=== PATIENT | female | born 1985 | race Caucasian/White ===

== ENCOUNTER 2021-02-19 17:23 | Emergency (ER) | payer OTHER, SELFPAY ==
[2021-02-19 17:33] VITALS: BP 132/88; PULSE 68; RESP 16; TEMP 37.2; O2SAT 100
--- NOTE | 2021-02-19 18:25 | ED.EAR ---
HPI - Ear Problem General Chief complaint: Ear Stated complaint: Jaw and Throat Pain Source: patient and RN notes reviewed Limitations: no limitations History of Present Illness HPI Narrative: The patient- a non-smoker/nondrinker- presents with a couple day worsening, of couple week history, of right jaw and ear discomfort. She complains of pain inferior/posterior to the TMJ that is worse with chewing or eating, better with palpation during eating. She attributes onset to bruxism or teeth clenching and possibly swimming, and symptoms not better with OTC preparations like peroxide, bite guard. No discharge, vertigo, tinnitus, decreased hearing, fever, sore throat, poor dentition-she has dentist appointment this week. Discussed possible causes [infectious, acquired, dental] and will treat broadly with antibiotics for occult dental abscess. Related Data Home Medications Medication Instructions Recorded Confirmed acyclovir 800 mg PO DAILY 02/19/21 02/19/21 levetiracetam 500 mg PO DAILY 02/19/21 02/19/21 metoclopramide HCl 10 mg PO DAILY 02/19/21 02/19/21 norethindrone acetate 5 mg PO DAILY 02/19/21 02/19/21 omeprazole 20 mg PO DAILY 02/19/21 02/19/21 Allergies Allergy/AdvReac Type Severity Reaction Status Date / Time glycerin Allergy Rash Verified 02/19/21 17:42 Beta-Blockers AdvReac Unknown Loss of Verified 02/19/21 17:42 (Beta-Adrenergic Bloc Consciousness gabapentin AdvReac Unknown Loss of Verified 02/19/21 17:42 Consciousness [id number] Antimigraine AdvReac Unknown Loss of Verified 02/19/21 17:42 Agents Consciousness RIZATRIPTAN BENZOATE AdvReac Unknown Loss of Uncoded 02/19/21 17:42 Consciousness Review of Systems Review of Systems: Narrative: General/Constitutional: No weight loss,fever Eyes: N0: Redness,discharge Ears/Nose/Throat: No: Epistaxis,ear discharge Respiratory: Denies: Hemoptysis Gastrointestinal: No Vomiting, Bleeding-rectal Skin: No Lumps, eruption Neurologic: No Focal Weakness,Sz Hematologic: Denies: Petechiae/Purpura Psychiatric: No: Suicida ideationl All Other Systems: Reviewed and Negative [facility] Family History Family History (Updated 10/06/14 @ 10:03 by DOCTOR UNKNOWN) Other Diabetes mellitus Family history of malignant neoplasm Hypertension Social History Social History Smoking status: Current every day smoker Alcohol intake: current Comments At time of signature, agree with nursing past medical, surgical, social and family history. There is no relevant family history pertinent to the presenting complaint Exam Narrative: Exam Narrative: General Appearance: Well appearing, Well nourished, Obese EYE: PERRLA, EOMI, Conjunctiva clear Ears: External ear normal, Auditory canal normal, scant wax, old scarred TMs [s/p PE tubes] Nose: Normal nose Mouth/Throat: Normal appearing without mild R jaw swelling, Normal lips, MM moist, Uvula midline, scattered dental caries Neck: Supple, No adenopathy Respiratory: Airway patent, No respiratory distress, Clear to auscultation Musculoskeletal: Full ROM, Non tender, Normal strength Skin: Warm, Dry, Normal color Neurological: A&O x3, Speech clear, CN II-XII intact Psychiatric: Normal mood, Normal affect Course Vital Signs Vital signs: Vital Signs Temperature 98.9 F 02/19/21 17:33 Pulse Rate 68 02/19/21 17:33 Respiratory Rate 16 02/19/21 17:33 Blood Pressure 132/88 02/19/21 17:33 Pulse Oximetry 100 02/19/21 17:33 Temperature 98.9 F 02/19/21 17:33 Pulse Rate 68 02/19/21 17:33 Respiratory Rate 16 02/19/21 17:33 Blood Pressure 132/88 02/19/21 17:33 Pulse Oximetry 100 02/19/21 17:33 Medical Decision Making Vital Signs Vital Signs: Vital Signs Temperature 98.9 F 02/19/21 17:33 Pulse Rate 68 02/19/21 17:33 Respiratory Rate 16 02/19/21 17:33 Blood Pressure 132/88 02/19/21 17:33 Pulse Oximetry 100 02/19/21 17:33 Temperature 98.9 F
== END 2021-02-19 18:33 | disposition home or self-care (01) ==
PROVIDERS: Emergency Provider Emergency Medicine; PCP Internal Medicine
DX: H92.02 Otalgia, left ear (principal); M26.621 Arthralgia of right temporomandibular joint; F17.200 Nicotine dependence, unspecified, uncomplicated
CPT/HCPCS: 99213; G0463

== ENCOUNTER 2021-06-20 07:15 | Outpatient (CLI) | payer OTHER, SELFPAY ==
--- NOTE | ~2021-06-20 | US_ITS ---
EXAMINATION: US right upper quadrant EXAM DATE: 06/20/2021 07:53 INDICATION: abd pain, nausea/vomiting PAIN, N/V. TECHNIQUE: Multiple grayscale and Doppler images of the abdomen right upper quadrant were obtained (b y a technologist who performed the scan) and subsequently reviewed. There is no prior study for pinky monique. FINDINGS: The pancreatic head and body are normal in appearance. The pancreatic tail is not visualized. The l iver has normal echogenicity and contour. There is a hyperechoic liver lesion at the dome measuring 9 mm, most likely a hemangioma correlating with prior abdomen pelvis CT 01/02/2019, unchanged in size. There is no evidence of intrahepatic biliary duct dilation. Portal venous flow was seen in the hep atopedal, normal direction and has normal Doppler waveform. No right-sided hydronephrosis. Common bile duct measures 3 mm, which is normal. The gallbladder wall is normal in thickness, with ex pected amount of distention. No sonographic evidence of pericholecystic fluid. There is no cholelit hiases. Technologist performing exam reports patient did not demonstrate sonographic Dean's sign. Please note that this sign is less reliable in patients who have received pain medication. IMPRESSION: Small liver hemangioma. Reviewed, dictated and finalized at location A. IMPRESSION: Small liver hemangioma.
== END 2021-06-20 07:16 | disposition home or self-care (01) ==
PROVIDERS: PCP Internal Medicine; Visit Provider Internal Medicine Gastroenterology
DX: R10.84 Generalized abdominal pain (principal); R11.2 Nausea with vomiting, unspecified
CPT/HCPCS: 76705

== ENCOUNTER 2022-05-21 07:59 | Outpatient (CLI) | payer OTHER, SELFPAY ==
--- NOTE | ~2022-05-21 | US_ITS ---
EXAMINATION: US right upper quadrant DATE: 05/21/2022 08:54 INDICATION: Hemangioma of other sites. TECHNIQUE: Multiple grayscale and Doppler ultrasound images of the abdomen were obtained. COMPARISON: Ultrasound abdomen 06/20/2021, CT abdomen and pelvis 01/02/2019 FINDINGS: The visualized portions of the head, body, and tail of the pancreas are normal. There is a 10 mm hyperechoic mass in right hepatic lobe. There is normal flow in main portal vein. The gallbladd er is normal in size. No gallstones or gallbladder wall thickening. There was no sonographic Dean s ign. The common duct is normal and measures 2 mm. IMPRESSION: 1. 10 mm hyperechoic mass in right hepatic lobe, stable from 06/20/2021, likely a hemangioma. Reviewed, dictated and finalized at location A.
== END 2022-05-21 08:00 | disposition home or self-care (01) ==
PROVIDERS: PCP Internal Medicine; Visit Provider Internal Medicine Gastroenterology
DX: D18.09 Hemangioma of other sites (principal)
CPT/HCPCS: 76705

== ENCOUNTER 2022-11-10 16:18 | Emergency (ER) | payer OTHER, SELFPAY ==
[2022-11-10 16:24] VITALS: BP 133/86; PULSE 107; RESP 18; O2SAT 100
[2022-11-10 16:31] VITALS: TEMP 35.7
[2022-11-10 16:41] LABS: Basophils Absolute Auto 0.1 K/mm3 (0.0-0.1); Basophils Percent Auto 0.3 % (0.2-1.2); Hematocrit 43.6 % (37.0-47.0); Hemoglobin 14.9 g/dL (12.0-15.0); Immature Granulocyte Absolute 0.14 K/mm3 (0.00-0.031); Immature Granulocyte Percent A 0.7 % (0-0.5); Lymphocytes Absolute Auto 0.94 K/mm3 (0.9-3.2); Lymphocytes Percent Auto 4.6 % (18.3-44.2); Mean Corpuscular HGB Conc 34.2 g/dl (32-36); Mean Corpuscular Hemoglobin 32.4 pg (26-34); Mean Corpuscular Volume 94.8 fl (80-100); Mean Platelet Volume 9.2 fl (7.4-10.4); Monocytes Absolute Auto 0.5 K/mm3 (0.1-0.6); Monocytes Percent Auto 2.2 % (2.6-8.5); Neutrophils Absolute Auto 18.9 K/mm3 (1.3-6.7); Neutrophils Percent Auto 92.2 % (45.5-73.1); Platelet Count Result 339 k/mm3 (150-375); Red Cell Distribution Width 11.8 % (11.5-14.5); White Blood Count 20.5 K/mm3 (4.5-10.0)
[2022-11-10 17:10] LABS: Alanine Aminotransferase 31 U/L (6-35); Albumin Level 5.2 g/dL (3.5-5.1); Alkaline Phosphatase 86 U/L (38-126); Anion Gap 12 mmol/L (8-16); Aspartate Amino Transferase 29 U/L (14-36); Bilirubin,Total 0.6 mg/dL (0.2-1.3); Blood Urea Nitrogen 13 mg/dL (7-17); Calcium 9.8 mg/dL (8.4-10.2); Carbon Dioxide 24 mmol/L (22-30); Chloride 105 mmol/L (98-107); Estimated CRCL calculation 62 ml/min; Estimated Glomerular Filt Rate > 60; Glucose 156 mg/dL (65-110); Lipase 81 U/L (23-300); Potassium 4.6 mmol/L (3.4-5.0); Sodium 141 mmol/L (137-145)
[2022-11-10 17:45] LABS: Bacteria Urine 2+ /hpf; Non Pathogenic Casts 0-2; Squamous Epithelial Cell Urine None seen /hpf (Few)
[2022-11-10 17:55] LABS: WBC Urine >75 /hpf
[2022-11-10 17:56] LABS: RBC Urine >75 /hpf (0-2)
[2022-11-10 18:05] LABS: Appearance Urine Cloudy (Clear); Bilirubin Urine 1+ (Negative); Blood Urine 3+ (Negative); Color Urine Amber (Yellow); Glucose Urine UA Negative (Negative); Ketones Urine 4+ mg/dL (Negative); Leukocyte Esterase Ur Trace LEU/UL (Negative); Nitrate Urine Negative (Negative); Protein Urine 3+ mg/dL (Negative); Specific Grav Ur >= 1.030 (1.001-1.035); Urobilinogen Urine 0.2 mg/dL (<2.0)
[2022-11-10 18:07] LABS: Add Urine Microscopic? YES
[2022-11-10 18:19] VITALS: BP 119/69; PULSE 84; RESP 16; TEMP 36.4; O2SAT 100
--- NOTE | 2022-11-10 18:59 | PC.NURSE ---
pt left d/t wait time
== END 2022-11-10 19:15 | disposition left against medical advice (07) ==
LOC: ANHED 19:08
PROVIDERS: Emergency Provider Emergency Medicine; PCP Internal Medicine
DX: R11.2 Nausea with vomiting, unspecified (principal)
CPT/HCPCS: 36415; 80053; 81001; 81025; 83690; 85025; 87086; 87088; 99199

== ENCOUNTER 2022-12-12 08:50 | Outpatient (CLI) | payer OTHER, SELFPAY ==
--- NOTE | ~2022-12-12 | US_ITS ---
Limited Abdominal Sonogram: Real-time sonographic imaging of the right upper quadrant was performed. Clinical History: Hemangioma COMPARISON: 05/21/2022 and 06/20/2021 Findings: The liver appears normal with no evidence of bile duct dilatation. There is a 1.3 cm hyper echoic mass in the right hepatic lobe. Main portal vein demonstrates normal direction of flow. The ga llbladder is well distended, and appears normal with no evidence of gallstone or wall thickening. The common bile duct measures 3 mm. The visualized pancreas, aorta, and IVC are unremarkable. Impression: 1.3 cm hyperechoic hepatic lesion, most likely hemangioma. This is similar to prior exams. Reviewed, dictated and finalized at location . Impression: 1.3 cm hyperechoic hepatic lesion, most likely hemangioma. This is similar to p rior exams.
== END 2022-12-12 08:51 | disposition home or self-care (01) ==
PROVIDERS: PCP Internal Medicine; Visit Provider Internal Medicine Gastroenterology
DX: D18.09 Hemangioma of other sites (principal)
CPT/HCPCS: 76705

== ENCOUNTER 2023-07-08 16:36 | Emergency (ER) | payer OTHER, SELFPAY ==
[2023-07-08 16:54] VITALS: BP 131/89; PULSE 89; RESP 16; TEMP 37.4; O2SAT 99
--- NOTE | 2023-07-08 17:26 | ED.URI ---
HPI - URI/Sore Throat General Chief Complaint: Upper Respiratory Infection Stated Complaint: Cough/Sinus Time Seen by Provider: 07/08/23 17:26 Source: patient, RN notes reviewed and old records reviewed Mode of arrival: ambulatory Limitations: no limitations History of Present Illness HPI Narrative: 38-year-old female presents to the [facility] with complaints of cough and sinus congestion that started about 30 days ago. Yesterday started with some chest wall pain only when coughing. Has tried multiple [id number] products with no relief. Has a history of migraine Related Data Home Medications Medication Instructions Recorded Confirmed acyclovir 800 mg tablet 800 mg PO DAILY 02/19/21 07/08/23 metoclopramide HCl 10 mg tablet 10 mg PO DAILY 02/19/21 07/08/23 loratadine 10 mg tablet (Claritin) 10 mg PO DAILY 07/08/23 07/08/23 pantoprazole 40 mg tablet,delayed 40 mg PO DIRECTED 07/08/23 07/08/23 release Allergies Allergy/AdvReac Type Severity Reaction Status Date / Time glycerin Allergy Rash Verified 02/19/21 17:42 Beta-Blockers AdvReac Unknown Loss of Verified 02/19/21 17:42 (Beta-Adrenergic Bloc Consciousness gabapentin AdvReac Unknown Loss of Verified 02/19/21 17:42 Consciousness [id number] Antimigraine AdvReac Unknown Loss of Verified 02/19/21 17:42 Agents Consciousness RIZATRIPTAN BENZOATE AdvReac Unknown Loss of Uncoded 02/19/21 17:42 Consciousness Review of Systems Review of Systems: All systems reviewed & are unremarkable except as noted in HPI and below Constitutional: Constitutional: Reports no additional constitutional complaints Eyes: Eyes: Reports no additional eye complaints ENT: Reports as per HPI Cardiovascular: Cardiovascular: Reports no additional cardiovascular complaints, Denies chest pain and Denies dyspnea Respiratory: Respiratory: Reports as per HPI, Denies chest congestion, Reports cough and Denies dyspnea Gastrointestinal: Gastrointestinal: Reports no additional gastrointestinal complaints, Denies abdominal pain, Denies nausea and Denies vomiting Musculoskeletal: Musculoskeletal: Reports no additional musculoskeletal complaints Integumentary/Breasts: Skin/Breast: Reports system reviewed and no additional complaints, except as docu Neurologic: Reports system reviewed and no additional complaints, except as documented Psychiatric: Psychiatric: Reports no additional psychiatric complaints Allergic/Immunologic: Allergic/Immunologic: Reports no additional allergic/immunologic complaints PMFSH Family History Family History Other Diabetes mellitus Family history of malignant neoplasm Hypertension Social History Social History Smoking status: Current every day smoker Alcohol intake: current Comments At the time of my signature, I reviewed and agree with the nursing past medical, surgical, social, and family history. There is no relevant family history pertinent to the patient complaint. Exam Const: General: cooperative, healthy appearing, comfortable, no acute distress, well developed, alert and well nourished Nutritional Appearance: well nourished Orientation/consciousness: patient oriented x3 Limitations: no limitations HENMT: Head: normal to inspection Ears: hearing grossly normal bilaterally, external ears normal, TM's normal bilaterally and EAC's normal Face/Nose/Sinus: Normal external nose present, Normal nares present, Normal nasal mucous membranes and turbinates present, normal facial exam and face symmetric Face and sinus: normal facial exam and face symmetric Mouth: Yes Normal oral and palatal mucosa present, Yes lip normal and Yes moist mucous membranes Throat: posterior oropharynx normal, uvula midline and postnasal drainage Eyes: General: appearance normal, both eyes and all related structures Alignment and Position: a
== END 2023-07-08 17:40 | disposition home or self-care (01) ==
PROVIDERS: Emergency Provider Nurse Practitioner; PCP Internal Medicine
DX: J40 Bronchitis, not specified as acute or chronic (principal); F17.200 Nicotine dependence, unspecified, uncomplicated
CPT/HCPCS: 99213; G0463

== ENCOUNTER 2023-10-29 07:24 | Outpatient (CLI) | payer OTHER, SELFPAY ==
--- NOTE | ~2023-10-29 | US_ITS ---
Limited Abdominal Sonogram: Real-time sonographic imaging of the right upper quadrant was performed. Clinical History: Hemangioma COMPARISON: 12/12/2022 Findings: The liver appears normal with no evidence of bile duct dilatation. Stable hyperechoic hepa tic mass measures 9 mm, suggestive of small hemangioma. Main portal vein demonstrates normal directio n of flow. The gallbladder is well distended, and appears normal with no evidence of gallstone or wal l thickening. The common bile duct measures 3 mm. The visualized pancreas, aorta, and IVC are unrema rkable. Impression: 9 mm hyperechoic hepatic lesion is most compatible with small hemangioma, essentially unchanged from prior exam given differences in imaging technique. Reviewed, dictated and finalized at [facility]. MAKER Impression: 9 mm hyperechoic hepatic lesion is most compatible with small hemangioma, essen emmally unchanged from prior exam given differences in imaging technique.
== END 2023-10-29 07:25 | disposition home or self-care (01) ==
PROVIDERS: PCP Internal Medicine; Visit Provider Internal Medicine Gastroenterology
DX: D18.09 Hemangioma of other sites (principal)
CPT/HCPCS: 76705

== ENCOUNTER 2025-05-22 14:36 | Emergency (ER) | payer OTHER, SELFPAY ==
[2025-05-22] VITALS (18 sets, daily range): BP systolic 119–138; BP diastolic 61–99; PULSE 59–103; RESP 15–42; TEMP 36.4; O2SAT 96–100
[2025-05-22 15:10] LABS: Hematocrit 44.5 % (37.0-47.0); Hemoglobin 15.2 g/dL (12.0-15.0); Immature Granulocyte Percent A 1.3 % (0-0.5); Lymphocytes Absolute Auto 3.28 K/mm3 (0.9-3.2); Mean Corpuscular HGB Conc 34.2 g/dl (32-36); Mean Corpuscular Hemoglobin 33.0 pg (26-34); Mean Corpuscular Volume 96.5 fl (80-100); Nucleated Red Blood Cells Absolute Auto 0.000 K/mm3 (0.0-0.012); Nucleated Red Blood Cells Perc 0.0 % (0.0-0.2); Platelet Count Result 386 k/mm3 (150-375); Red Blood Count 4.61 M/mm3 (4.2-5.4); White Blood Count 23.1 K/mm3 (4.5-10.0)
--- NOTE | 2025-05-22 15:10 | ED.NAVMDI ---
HPI - Nausea/Vomiting/Diarrhea General Chief complaint: Nausea/Vomiting/Diarrhea Stated complaint: N/V, black stool Time Seen by Provider: 05/22/25 14:50 History of Present Illness HPI Narrative: Patient is a 40-year-old female who presents to the ER with nausea vomiting and generalized abdominal pain that started this morning. She reports she has had these symptoms in the past but never this severe. Patient endorses daily marijuana use. She denies any recent fevers, urinary symptoms, back pain. Patient endorses a history of migraine headaches. Related Data Home Medications ?Medication ?Instructions ?Recorded ?Confirmed ?Last Taken ?Type acyclovir 800 mg tablet 800 mg PO DAILY 02/19/21 02/23/25 Unknown History Allergies Allergy/AdvReac Type Severity Reaction Status Date / Time glycerin Allergy Rash Verified 05/22/25 14:37 Beta-Blockers AdvReac Unknown Loss of Verified 05/22/25 14:37 (Beta-Adrenergic Bloc Consciousness gabapentin AdvReac Unknown Loss of Verified 05/22/25 14:37 Consciousness [id number] Antimigraine AdvReac Unknown Loss of Verified 05/22/25 14:37 Agents Consciousness RIZATRIPTAN BENZOATE AdvReac Unknown Loss of Uncoded 05/22/25 14:37 Consciousness Review of Systems Review of Systems: All systems reviewed & are unremarkable except as noted in HPI and below PMFSH Past Medical History Medical History Migraines Surgical History Surgical History History of tonsillectomy Family History Family History Other Diabetes mellitus Family history of malignant neoplasm Hypertension Social History Social History Smoking status: Current every day smoker Alcohol intake: current Exam Narrative: GENERAL: Ill appearing, well-nourished, non-toxic, in acute distress due to pain. HEAD: Normocephalic, atraumatic. NECK: Supple. No adenopathy, no masses. RESPIRATORY: Airway patent, respirations nonlabored. Clear to auscultation bilaterally, no rales, rhonchi, wheezing. CARDIOVASCULAR: Regular rate and rhythm without murmurs, rubs, or gallops. Peripheral pulses 2+ and equal bilaterally. ABDOMINAL: Soft, generalized tenderness, nondistended, no hepatosplenomegaly. Normoactive BS. MUSCULOSKELETAL: Moves all extremities. Strength/ROM intact without gross deformities. SKIN: Warm, dry, normal color. No rashes. NEURO: A&O X3. Speech clear. Cranial nerves II-XII intact. No ataxic movements. PSYCHIATRIC: Appropriate mood and affect. Normal interaction. Course Vital Signs Vital signs: Vital Signs Temperature 36.4 C 05/22/25 14:38 Pulse Rate 91 05/22/25 14:38 Respiratory Rate 20 05/22/25 14:38 Blood Pressure 125/74 05/22/25 14:38 Pulse Oximetry 99 05/22/25 14:38 Oxygen Delivery Room Air 05/22/25 14:38 Temperature 36.4 C 05/22/25 14:38 Pulse Rate 64 05/22/25 17:16 Respiratory Rate 15 05/22/25 17:16 Blood Pressure 119/90 05/22/25 17:16 Pulse Oximetry 99 05/22/25 15:46 Oxygen Delivery Room Air 05/22/25 14:38 MDM - Nausea/Vomiting/Diarrhea MDM Narrative Medical decision making narrative: Patient is a 40-year-old female who presents to the ER with nausea vomiting and generalized abdominal pain that started this morning. She reports she has had these symptoms in the past but never this severe. Patient endorses daily marijuana use. She denies any recent fevers, urinary symptoms, back pain. Patient endorses a history of migraine headaches. Labs Ordered: CBC, CMP, type and screen, PTT, INR, UA, UDS Imaging Ordered: None necessary Medications Ordered: 1 L normal saline IV bolus, Toradol 15 mg IV, Haldol 5 mg IM Results: Patient's CBC indicates a white blood cell count 23.1, hemoglobin of 15.2, platelet count of 386. Her coags were within normal limits. Patient's chemistry indicates a carbon dioxide of 13, anion gap of 23, glucose of 131, total protein 8.7, albumin of 5.4. Her urinalysis indicates mild dehydration. Patient UDS was positive for cannabinoids. Diagnosis: Cannabinoid hyperemesis, nausea and vomiting, dehydration Patient Education/Shared MDM: Results of lab work shared with patient. She endorses significant improvement of symptoms following medication administration. Extensive education regarding marijuana use was provided to patient and her significant other. Patient strongly advised to maintain hydration status upon discharge and follow-up with her PCP as needed. She will be discharged home with a prescription for Reglan and capsaicin motion. Strict return precautions provided. Patient verbalized understanding and is in agreement with plan. Vital signs stable at time of discharge. All questions answered. Differential Diagnosis Differential diagnosis: Likely food poisoning, gastroenteritis, drug-induced nausea and vomiting and dehydration Lab Data Attestation: I reviewed the patient's lab results. 05/22/25 15:04 05/22/25 15:04 Labs: Lab Results 05/22/25 05/22/25 Range/Units 15:04 15:14 WBC 23.1 H (4.5-10.0) K/mm3 RBC 4.61 (4.2-5.4) M/mm3 Hgb 15.2 H (12.0-15.0) g/dL Hct 44.5 (37.0-47.0) % MCV 96.5 (80-100) fl MCH 33.0 (26-34) pg MCHC 34.2 (32-36) g/dl RDW 12.6 (11.5-14.5) % Plt Count 386 H (150-375) k/mm3 MPV 8.6 (7.4-10.4) fl Immature Gran % (Auto) 1.3 H (0-0.5) % Neut % (Auto) 80.1 H (45.5-73.1) % Lymph % (Auto) 14.2 L (18.3-44.2) % [place] % (Auto) 3.8 (2.6-8.5) % Eos % (Auto) 0.0 (0-4.4) % Baso % (Auto) 0.6 (0.2-1.2) % Lymph # (Auto) 3.28 H (0.9-3.2) K/mm3 [place] # (Auto) 0.9 H (0.1-0.6) K/mm3 Eos # (Auto) 0.0 (0-0.3) K/mm3 Baso # (Auto) 0.1 (0.0-0.1) K/mm3 Abs Immat Gran (auto) 0.30 H (0.00-0.031) K/mm3 Absolute Neuts (auto) 18.5 H (1.3-6.7) K/mm3 Absolute Nucleated RBC 0.000 (0.0-0.012) K/mm3 Nucleated RBC % 0.0 (0.0-0.2) % PT 14.0 (11.1-14.7) Seconds INR 1.1 APTT 22.6 (22.3-36.8) Seconds Sodium 142 (137-145) mmol/L Potassium 3.8 (3.4-5.0) mmol/L Chloride 106 (98-107) mmol/L Carbon Dioxide 13 L (22-30) mmol/L Anion Gap 23 H (4-12) mmol/L BUN 16 (7-17) mg/dL Creatinine 0.86 (0.7-1.0) mg/dL Estim Creat Clear Calc 59 ml/min Estimated GFR > 60 (59 - ) Glucose 131 H (65-110) mg/dL Calcium 10.1 (8.4-10.2) mg/dL Total Bilirubin 0.4 (0.2-1.3) mg/dL AST 31 (14-36) U/L ALT 29 (6-35) U/L Alkaline Phosphatase 87 (38-126) U/L Total Protein 8.7 H (6.3-8.2) g/dL Albumin 5.4 H (3.5-5.1) g/dL Urine Color Yellow (Yellow) Urine Appearance Clear (Clear) Urine pH 5.5 (5.0-9.0) Ur Specific [place] >= 1.030 (1.001-1.035) Urine Protein 2+ H (Negative) mg/dL Urine Glucose (UA) Negative (Negative) mg/dL Urine Ketones 1+ H (Negative) mg/dL Ur Blood (Man) 1+ H (Negative) Urine Nitrate Negative (Negative) Urine Bilirubin Negative (Negative) Urine Urobilinogen 0.2 (<2.0) mg/dL Add Ur Microanalysis Reviewed Leukocyte Esterase Rfl Negative (Negative) MEHRAN/UL Urine RBC 3-5 H (0-2) /hpf Urine WBC 0-5 (0-3) /hpf Ur Squamous Epith Cells Occasional (Few) /hpf Urine Bacteria 1+ H /hpf Urine Casts 0-2 Urine Opiates Screen Negative (Negative) Urine Methadone Screen Negative (Negative) Ur Barbiturates Screen Negative (Negative) Ur Phencyclidine Scrn Negative (Negative) Ur Amphetamine Screen Negative (Negative) U Benzodiazepines Scrn Negative (Negative) Urine Cocaine Screen Negative (Negative) U Cannabinoids Screen Positive A (Negative) Blood Type A Positive Antibody Screen Negative Discharge Plan Discharge Clinical Impression: Drug-induced nausea and vomiting, Dehydration, Cannabinoid hyperemesis syndrome Patient Disposition: Home Condition: Improved Instructions: Antibiotic Form, Dehydration (ED), Acute Nausea and Vomiting (ED), Cannabis Use Disorder (ED) Additional Instructions: Please return to the ER with any worsening symptoms. Follow-up with primary care provider as needed. If your symptoms return please take a hot shower and apply capsaicin lotion afterwards. You may take Reglan as needed for nausea. Please use Tylenol and/or ibuprofen for pain control. Patient Language: Turkish Prescriptions: New metoclopramide HCl [Reglan] 10 mg tablet 10 mg PO Q6H PRN (Reason: nausea and vomiting) Qty: 30 0RF capsaicin 0.075 % cream 1 applic topical TID Qty: 60 0RF Rx Instructions: do not wash area for at least 30 min after application No Action acyclovir 800 mg tablet 800 mg PO DAILY famotidine 40 mg tablet 40 mg PO DAILY Qty: 90 3RF promethazine 12.5 mg tablet 12.5 mg PO TID PRN (Reason: nausea and vomiting) Qty: 60 0RF Follow-up/Referrals: Kal,Kendra Spain MD [Primary Care Provider, Unknown] Time of Disposition: 18:01
[2025-05-22 15:22] LABS: Alanine Aminotransferase 29 U/L (6-35); Albumin Level 5.4 g/dL (3.5-5.1); Alkaline Phosphatase 87 U/L (38-126); Anion Gap 23 mmol/L (4-12); Aspartate Amino Transferase 31 U/L (14-36); Bilirubin,Total 0.4 mg/dL (0.2-1.3); Blood Urea Nitrogen 16 mg/dL (7-17); Calcium 10.1 mg/dL (8.4-10.2); Carbon Dioxide 13 mmol/L (22-30); Chloride 106 mmol/L (98-107); Estimated CRCL calculation 59 ml/min; Estimated Glomerular Filt Rate > 60; Glucose 131 mg/dL (65-110); Potassium 3.8 mmol/L (3.4-5.0); Sodium 142 mmol/L (137-145); Total Protein 8.7 g/dL (6.3-8.2)
[2025-05-22] MEDS: SODIUM CHLORIDE 0.9% IV 1,000 ML 999 ML IV CONT (15:22)
[2025-05-22] MEDS: KETOROLAC 15 MG/ML VIAL (*BKC) IV PUSH (15:22)
[2025-05-22] MEDS: HALOPERIDOL LACTATE 5 MG/ML VIAL IM (15:22)
[2025-05-22 15:23] LABS: INR 1.1; Prothrombin Time 14.0 Seconds (11.1-14.7)
[2025-05-22 15:25] LABS: Partial Thromboplastin Time 22.6 Seconds (22.3-36.8)
[2025-05-22 15:38] LABS: Cannabinoid Screen Urine Positive (Negative)
[2025-05-22 15:50] LABS: Appearance Urine Clear (Clear); Glucose Urine UA Negative (Negative); Specific Grav Ur >= 1.030 (1.001-1.035)
[2025-05-22 15:51] LABS: Add Urine Microscopic? YES; Leukocyte Esterase Ur Negative LEU/UL (Negative); Nitrate Urine Negative (Negative)
[2025-05-22 15:58] LABS: Need Manual Microscopic Reviewed; Non Pathogenic Casts 0-2
== END 2025-05-22 18:14 | disposition home or self-care (01) ==
PROVIDERS: Emergency Medicine; Emergency Provider Registered Nurse; PCP Emergency Medicine
DX: R11.2 Nausea with vomiting, unspecified (principal); F12.90 Cannabis use, unspecified, uncomplicated; E86.0 Dehydration; F17.210 Nicotine dependence, cigarettes, uncomplicated
CPT/HCPCS: 36415; 80053; 80307; 81001; 85025; 85610; 85730; 86850; 86900; 86901; 96361; 96372; 96374; 99284; J1630; J1885; J7030